=== PATIENT | male | born 1950 ===

== ENCOUNTER 2017-06-24 06:52 | Day surgery (SDC) | payer BC ==
[~2017-06-24] VITALS: Ht 175.3 cm; Wt 88.5 kg
[~2017-06-24 06:52] MED LIST: ASPIR-LOW81 MG PO; ATORVASTATIN CA80 MG PO; BRILINTA90 MG PO; DOXYCYCLINE HY100 MG PO; LISINOPRIL2.5 MG PO; METOPROLOL SUCC50 MG PO; XARELTO20 MG PO
[2017-06-24] MEDS ORDERED: DOXYCYCLINE HY100 MG PO (07:06)
== END 2017-06-24 08:34 | disposition home or self-care (01) ==
LOC: OPS 06:52 → DS 06:52 → OPS 08:34
PROVIDERS: Ophthalmology
PROC: 08RJ3JZ Replacement of Right Lens with Synthetic Substitute, Percutaneous Approach (ICD-10-PCS; principal; 2017-06-24 08:00)
DX: H25.13 Age-related nuclear cataract, bilateral (principal); Z79.82 Long term (current) use of aspirin; Z79.899 Other long term (current) drug therapy
CPT/HCPCS: J2250